=== PATIENT | female | born 1970 | race Caucasian/White ===

== ENCOUNTER 2016-09-03 13:07 | Emergency (ER) | payer OTHER, MEDICARE ==
[~2016-09-03] VITALS: Ht 167.6 cm; Wt 56.2 kg
[2016-09-03 13:11] VITALS: BP 141/70; PULSE 81; RESP 20; TEMP 98.6; O2SAT 99
--- NOTE | 2016-09-03 13:20 | PD ---
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 Her chief complaint is pain in the right hand, wrist, and forearm. Mild abrasion to the anterior right knee. She is up-to-date on her tetanus. There is no open wounds. She has no other injuries. Pain in the right wrist is 10 out of 10. She is allergic to erythromycin, penicillin, and codeine makes her nauseous and vomit. PFSH Past Surgical History Hysterectomy: Yes Social History Alcohol Use: Yes Tobacco Use: Yes Substance Use: No Allergies-Medications (Allergen,Severity, Reaction): Coded Allergies: Erythromycins (Verified Allergy, Intermediate, HIVES, 09/03/16) Penicillin (Verified Allergy, Intermediate, HIVES, 09/03/16) Reported Meds & Prescriptions Reported Meds & Active Scripts Active Lortab (Hydrocodone-Acetaminophen) 5-325 Mg Tab 1-2 Tab PO Q6H PRN Reported Simvastatin 10 Mg Tab 10 Mg PO DAILY Propranolol (Propranolol HCl) 10 Mg Tab 10 Mg PO Q12HR Review of Systems Except as stated in HPI: all other systems reviewed are Neg General / Constitutional: No: Fever Eyes: No: Visual changes HENT: No: Headaches Cardiovascular: No: Chest Pain or Discomfort Respiratory: No: Shortness of Breath Gastrointestinal: No: Abdominal Pain Genitourinary: No: Dysuria Musculoskeletal: Positive: Arthralgias, Limited ROM, Pain Skin: Positive Lesions, No Rash Neurologic: No: Weakness Psychiatric: No: Depression Endocrine: No: Polydipsia Hematologic/Lymphatic: No: Easy Bruising Physical Exam Narrative GENERAL: Patient is in moderate distress SKIN: Warm and dry. She has a half-dollar sized superficial abrasion to the right anterior knee. Otherwise patient has normal skin color and turgor. HEAD: Atraumatic. Normocephalic. Nontender. EYES: Pupils equal and round. No scleral icterus. No injection or drainage. ENT: No nasal bleeding or discharge. Mucous membranes pink and moist. Pharynx is clear. Airway is patent. NECK: Trachea midline. Supple and nontender. CARDIOVASCULAR: Regular rate and rhythm. RESPIRATORY: No accessory muscle use. Clear to auscultation. Breath sounds equal bilaterally. MUSCULOSKELETAL: Extremities without clubbing, cyanosis, or edema. No obvious deformities. Patient has significant pain along the right lateral forearm and wrist with limited range of motion secondary to pain. There is no obvious deformity or swelling. She has normal neurovascular exam distal to the wrist. NEUROLOGICAL: Awake and alert. No obvious cranial nerve deficits. Motor grossly within normal limits. Five out of 5 muscle strength in the arms and legs. Normal speech. PSYCHIATRIC: Appropriate mood and affect; insight and judgment normal. Data Data Last Documented VS Vital Signs Date Time Temp Pulse Resp B/P Pulse Ox O2 Delivery O2 Flow Rate FiO2 09/03/16 13:11 98.6 81 20 141/70 99 Orders Acetamin-Hydrocod 325-5 Mg (Grover 5-325 (09/03/16 13:30) Ibuprofen (Motrin) (09/03/16 13:30) Forearm (2vws) (09/03/16 13:23) Hand, Complete (Aiv2wip) (09/03/16 13:23) Wrist, Complete (Vxw8hrs) (09/03/16 13:23) Ice/Cold Pack (09/03/16 13:23) Splint Or Brace Apply/Monitor (09/03/16 13:54) Splint Or Brace Apply/Monitor (09/03/16 13:54) Ketorolac Inj (Toradol Inj) (09/03/16 14:15) MDM Medical Decision Making Medical Screen Exam Complete: Yes Emergency Medical Condition: Yes Differential Diagnosis Fall. Right wrist contusion. Right arm contusion. Right wrist fracture. Right hand contusion. Right hand fracture. Right knee contusion. Narrative Course Patient is medically stable at time of exam. Patient is given 600 mg ibuprofen as well as 1 Lortab 5/325 by mouth. Ice is applied to the injured area. X-rays of the right forearm, wrist, and hand are ordered. X-ray shows comminuted nondisplaced fracture of the distal radius and ulnar styloid. Patient is placed in a sugar tong splint and sling. Patient will be continued on Lortab 5/325 one every 6 hours when necessary pain #20. Patient should keep the splint on and sling at all times. Patient should ice the area frequently for pain control. Patient should call Dr. Kohli, the orthopedic on-call for follow-up in the next week. Diagnosis Primary Impression: Right wrist fracture Qualified Code: S62.101A - Right wrist fracture, closed, initial encounter Referrals: Virgil Kohli MD Patient Instructions: General Instructions, How to Use a Sling (GEN), Narcotic given in the ED, Splint Care (ED), Wrist Fracture in Adults (ED) Additional Instructions: X-ray shows comminuted nondisplaced fracture of the distal radius and ulnar styloid. Patient is placed in a sugar tong splint and sling. Patient will be continued on Lortab 5/325 one every 6 hours when necessary pain #20. Patient should keep the splint on and sling at all times. Patient should ice the area frequently for pain control. Patient should call Dr. Kohli, the orthopedic on-call for follow-up in the next week. Med/Other Pt SpecificInfo: Prescription(s) given Scripts Hydrocodone-Acetaminophen (Lortab)5-325 Mg Tab1-2 Tab PO Q6H PRN (PAIN) #20 TAB Prov:Yefri Pineda MD 09/03/16 Disposition: 01 DISCHARGE HOME Condition: Stable Yahir Caro Sep 03, 2016 13:20
[2016-09-03] MEDS ORDERED: IBUPROFEN 600 MG TAB PO ONE (13:30)
[2016-09-03] MEDS ORDERED: ACETAMINOPHEN/HYDROcodone 325 MG/5 MG TAB PO ONE (13:30)
[2016-09-03] MEDS ORDERED: PROP10TA6 PO (13:37)
[2016-09-03] MEDS ORDERED: SIMV10TA PO (13:37)
[2016-09-03] MEDS ORDERED: HYDR-3533 PO ×2 (14:04→14:06)
[2016-09-03] MEDS ORDERED: KETOROLAC TROMETHAMINE 60 MG/2 ML (IM) VIAL IM ONE (14:15)
--- NOTE | 2016-09-03 14:15 | RADRPT ---
EXAM DATE/TIME: 09/03/2016 13:32 [facility] COMPARISON: No previous studies available for comparison. INDICATIONS : Right wrist pain after falling today. MEDICAL HISTORY : None. SURGICAL HISTORY : None. ENCOUNTER: Initial ACUITY: 1 day PAIN SCORE: 10/10 LOCATION: Right posterior wrist. FINDINGS: 3 views of the left wrist reveal an acute nondisplaced fracture involving the distal radial metaphysi s. It is comminuted in nature with one fracture line extending to the articular surface of the radioc arpal joint. No annular shortness traction. An ulnar styloid fracture is also observed. CONCLUSION: Acute distal radial and ulnar fractures as detailed above. Vernon Somers Jr., MD on September 03, 2016 at 14:12 Board Certified Radiologist. This report was verified electronically.
--- NOTE | 2016-09-03 14:16 | RADRPT ---
EXAM DATE/TIME: 09/03/2016 13:37 [facility] COMPARISON: No previous studies available for comparison. INDICATIONS : Right forearm pain after falling today. MEDICAL HISTORY : None. SURGICAL HISTORY : None. ENCOUNTER: Initial ACUITY: 1 day PAIN SCORE: 10/10 LOCATION: Right forearm. FINDINGS: Two view examination of the right forearm demonstrates no evidence of fracture or dislocation. See th e wrist reported separately. Bony mineralization is normal. The soft tissue structures are intact. CONCLUSION: 1. See the wrist x-ray reported separately. 2. Remaining forearm is unremarkable. Vernon Somers Jr., MD on September 03, 2016 at 14:13 Board Certified Radiologist. This report was verified electronically.
--- NOTE | 2016-09-03 14:42 | RADRPT ---
EXAM DATE/TIME: 09/03/2016 13:40 [facility] COMPARISON: No previous studies available for comparison. INDICATIONS : Right hand pain after falling today. MEDICAL HISTORY : None. SURGICAL HISTORY : None. ENCOUNTER: Initial ACUITY: 1 day PAIN SCORE: 10/10 LOCATION: Right posterior hand. FINDINGS: There is evidence of an acute fracture involving the left distal radius with involvement of the artic ular surface. There is also an acute mildly displaced avulsion fracture involving the ulnar styloid p rocess. CONCLUSION: 1. Acute comminuted fracture involving the left distal radius with involvement of the articular surfa ce. 2. Acute mildly displaced ulnar styloid process fracture. Jose Winkler MD on September 03, 2016 at 14:13 Board Certified Radiologist. This report was verified electronically.
== END 2016-09-03 15:08 | disposition home or self-care (01) ==
LOC: PHEFT 13:07
DX: S62.101A Fracture of unspecified carpal bone, right wrist, initial encounter for closed fracture (principal); M79.641 Pain in right hand; M79.631 Pain in right forearm; S80.211A Abrasion, right knee, initial encounter; Z72.0 Tobacco use; W18.39XA Other fall on same level, initial encounter
CPT/HCPCS: 29125; 73090; 73110; 73130; 96372; 99284; J1885